=== PATIENT | male | born 2000 | race Caucasian/White ===

== ENCOUNTER 2022-01-23 09:06 | Emergency (ER) | payer OTHER ==
[2022-01-23] MEDS ORDERED: Diphtheria,Pertussis(Acell),Tetanus Vaccine 0.5 ML Syringe IM ONE (09:27)
[2022-01-23] MEDS ORDERED: Lidocaine 1% 5 ML VIAL INJECT ONE (09:28)
== END 2022-01-23 10:13 | disposition home or self-care (01) ==
LOC: CC.ED 09:06
DX: S61.012A Laceration without foreign body of left thumb without damage to nail, initial encounter (principal); Z23 Encounter for immunization; W26.8XXA Contact with other sharp object(s), not elsewhere classified, initial encounter
CPT/HCPCS: 12001; 73140-FA; 90471; 90715; 99282-25; 99283